=== PATIENT | female | born 1995 | race Hispanic/Latino ===

== ENCOUNTER 2020-04-07 22:45 | Emergency (ER) | payer BC ==
[~2020-04-07] VITALS: Ht 157.5 cm; Wt 61.2 kg
== END 2020-04-07 23:35 | disposition home or self-care (01) ==
LOC: ER 22:50
DX: H92.01 Otalgia, right ear (principal)
CPT/HCPCS: 99282

== ENCOUNTER 2024-02-16 09:03 | Emergency (ER) | payer BC ==
[~2024-02-16] VITALS: Ht 157.5 cm; Wt 61.2 kg
[2024-02-16 09:23] VITALS: PULSE 87; RESP 16; TEMP 97.6; O2SAT 100
[2024-02-16] MEDS ORDERED: LIDOCAINE HCL 1% LOCAL INJ 20 ML VIAL ONE (11:07)
[2024-02-16] MEDS ORDERED: CEPHALEXIN500 MG PO (11:50)
== END 2024-02-16 13:04 | disposition home or self-care (01) ==
LOC: ER 09:14
DX: S81.011A Laceration without foreign body, right knee, initial encounter (principal); W26.8XXA Contact with other sharp object(s), not elsewhere classified, initial encounter; Y92.89 Other specified places as the place of occurrence of the external cause
CPT/HCPCS: 12002; 73562; 99282; J2003

== ENCOUNTER 2024-05-09 19:33 | Emergency (ER) | payer BC ==
[~2024-05-09] VITALS: Ht 154.9 cm; Wt 62.6 kg
[~2024-05-09 19:33] MED LIST: CEPHALEXIN500 MG PO
[2024-05-09] MEDS ORDERED: DIPHENHYDRAMINE HCL INJ 50 MG/ML VIAL ONE (19:35)
[2024-05-09] MEDS ORDERED: SODIUM CHLORIDE 0.9% 1000ML 1,000 ML ONE (19:36)
[2024-05-09] MEDS ORDERED: METHYLPREDNISOLONE SOD SUCC 125 MG/2ML VIAL ONE (19:36)
[2024-05-09 19:38] VITALS: TEMP 98.6
[2024-05-09] MEDS: METHYLPREDNISOLONE SOD SUCC 125 MG/2ML VIAL IV ONE (19:46)
[2024-05-09] MEDS: DIPHENHYDRAMINE HCL INJ 50 MG/ML VIAL IV ONE (19:46)
[2024-05-09] MEDS: FAMOTIDINE 20 MG/2 ML VIAL IV STA (19:49)
[2024-05-09] MEDS: SODIUM CHLORIDE 0.9% 1000ML 1,000 ML IV ONE (19:49)
[2024-05-09 19:50] LABS: BASOPHILS % 0.6 % (0.0-1.0); EOSINOPHILS # (AUTO) 0.2 (0.0-0.4); EOSINOPHILS % 2.4 % (0.0-6.0); HEMOGLOBIN 13.6 g/dL (12.0-16.0); LYMPHOCYTES # (AUTO) 2.9 (1.0-3.2); LYMPHOCYTES % 43.4 % (18.0-39.1); MEAN CORPUSCULAR HEMOGLOBIN 30.2 pg (28-32); MEAN CORPUSCULAR VOLUME 88.7 fL (81-99); MONOCYTES # (AUTO) 0.3 (0.2-0.8); MONOCYTES % 4.4 % (4.4-11.3); NEUTROPHILS # (AUTO) 3.3 (2.1-6.9); NEUTROPHILS % 49.1 % (38.7-80.0); PLATELET COUNT 224 x10e3/uL (140-360); RED BLOOD COUNT 4.51 x10e6/uL (3.6-5.1); RED CELL DISTRIBUTION WIDTH 12.5 % (11.7-14.4); WHITE BLOOD COUNT 6.75 x10e3/uL (4.8-10.8)
[2024-05-09 20:13] LABS: CALCIUM 9.4 mg/dL (8.4-10.2); CREATININE, SERUM 0.9 mg/dL (0.57-1.11)
[2024-05-09 20:26] VITALS: PULSE 84; RESP 16
[2024-05-09] MEDS ORDERED: MEDROL4 M2 PO (23:06)
[2024-05-09] MEDS ORDERED: PENCILLIN V PO250 MG PO (23:12)
[2024-05-09 23:14] VITALS: BP 113/68; PULSE 81; RESP 15; TEMP 98.4; O2SAT 100
== END 2024-05-09 23:15 | disposition home or self-care (01) ==
LOC: ER 19:39
DX: R21 Rash and other nonspecific skin eruption (principal); T36.8X5A Adverse effect of other systemic antibiotics, initial encounter; Y92.89 Other specified places as the place of occurrence of the external cause
CPT/HCPCS: 36415; 80048; 85025; 99283; J1200; J2919; J7030